=== PATIENT | male | born 2000 | race African-American/Black ===

== ENCOUNTER 2025-08-18 14:31 | Emergency (ER) | payer SELFPAY ==
[~2025-08-18] VITALS: Ht 175.3 cm; Wt 82.0 kg
[2025-08-18 14:33] VITALS: O2SAT 99
[2025-08-18 14:54] VITALS: TEMP 36.7; O2SAT 97
[2025-08-18] MEDS ORDERED: MORPHINE SULFATE 2 MG/ML INJ (NOT FOR IM USE) IV ONE (15:15)
[2025-08-18 15:46] VITALS: BP 112/36; PULSE 96; RESP 24
[2025-08-18] MEDS: TETANUS, DIPHTHERIA, PERTUSSIS VAC/PF 0.5ML (>10YR OLD) IM ONE (15:46)
[2025-08-18] MEDS: MORPHINE SULFATE 4 MG/ML INJ (FOR IV/IM USE) IV SCH (15:46)
[2025-08-18] MEDS: SODIUM CHLORIDE 0.9% 1,000 ML IV ONE (15:46)
[2025-08-18 17:33] LABS: BASOPHILS % 0.9 % (0.0-2.0); EOSINOPHILS % 0.1 % (0.0-5.0); HEMATOCRIT. 47.2 % (42.0-52.0); HEMOGLOBIN. 15.6 g/dL (14.0-18.0); LYMPHOCYTES % 48.8 % (20.0-50.0); MEAN PLATELET VOLUME 8.6 fl (7.4-10.4); MONOCYTES % 8.9 % (2.0-8.0); NEUTROPHILS % 41.3 % (40.0-76.0); PLATELET 297 x1000/uL (130-400); RED BLOOD CELL COUNT 4.78 mill/uL (4.7-6.1); RED CELL DISTRIBUTION WIDTH 15.1 % (11.6-14.6)
[2025-08-18 17:47] LABS: CREATININE 1.2 mg/dL (0.6-1.3); UREA NITROGEN BLOOD 8 mg/dL (9-23)
[2025-08-18 17:48] LABS: ETHANOL BLOOD 260 mg/dL (<10); TROPONIN I HIGH SENSITIVITY 7 ng/L (3.0-53)
[2025-08-18 17:49] LABS: ASPARTATE AMINOTRANSFERASE 21 IU/L (<34); BILIRUBIN DIRECT < 0.1 mg/dL (<=3.0); BILIRUBIN TOTAL 0.3 mg/dL (0.1-1.0); PROTEIN TOTAL 8.1 g/dL (6.0-8.3)
[2025-08-18 17:53] LABS: INR 1.0
== END 2025-08-18 17:36 | disposition left against medical advice (07) ==
LOC: ER 14:31
DX: S00.81XA Abrasion of other part of head, initial encounter (principal); F10.129 Alcohol abuse with intoxication, unspecified; Y90.8 Blood alcohol level of 240 mg/100 ml or more; W01.0XXA Fall on same level from slipping, tripping and stumbling without subsequent striking against object, initial encounter; Y93.01 Activity, walking, marching and hiking; Y92.89 Other specified places as the place of occurrence of the external cause; Y99.8 Other external cause status
CPT/HCPCS: 80076; 80048; 80320; 83690; 85025; 85610; 85730; 86850; 86900; 86901; 84484; 36415; 71045; 70450; 72125; 71250; 74176; 96361; 96374; 99285; J2270; J7030; 90715; G0480